=== PATIENT | male | born 1940 | race Caucasian/White ===

== ENCOUNTER 2016-08-08 14:59 | Emergency (ER) | payer MEDICARE ==
[2016-08-08 15:44] VITALS: BP 156/70
--- NOTE | 2016-08-08 16:24 | EDM.PDOC ---
ED HPI GENERAL MEDICAL PROBLEM - General Chief Complaint: General Stated Complaint: FISH HOOK Time Seen by Provider: 08/08/16 15:57 Source of Information: Reports: Patient History Limitations: Reports: No Limitations - History of Present Illness INITIAL COMMENTS - FREE TEXT/NARRATIVE: 75 yo male presents with fish hook in lateral right leg. generally healthy. incident occurred within the hour. tetanus up to date - Related Data Allergies Allergy/AdvReac Type Severity Reaction Status Date / Time No Known Allergies Allergy Verified 08/08/16 15:44 Home Meds: Home Meds Acetaminophen 500 mg PO Q4HR PRN 08/08/16 [History] Apixaban [Eliquis] 5 mg PO BID 08/08/16 [History] Fluticasone Propionate [Flonase] 1 spray TOP DAILY 08/08/16 [History] Hydrochlorothiazide/Lisinopril [Lisinopril-HCTZ 20-12.5 MG] 1 tab PO DAILY 08/08 [History] Metoprolol Succinate [Toprol XL] 25 mg PO DAILY 08/08/16 [History] Omeprazole 20 mg PO DAILY 08/08/16 [History] Past Medical History HEENT History: Reports: Allergic Rhinitis, Cataract Cardiovascular History: Reports: Afib, Hypertension Musculoskeletal History: Reports: Fracture Oncologic (Cancer) History: Reports: Basal Cell Carcinoma, Squamous Cell Carcinoma - Past Surgical History HEENT Surgical History: Reports: Cataract Surgery Cardiovascular Surgical History: Reports: Cardiac Ablation GI Surgical History: Reports: Hernia Repair/Other Musculoskeletal Surgical History: Reports: Shoulder Surgery Other Musculoskeletal Surgeries/Procedures:: right Social & Family History - Tobacco Use Smoking Status *Q: Unknown Ever Smoked ED ROS GENERAL - Review of Systems Review Of Systems: See Below Constitutional: Denies: Fever, Chills Respiratory: Denies: Shortness of Breath, Wheezing Cardiovascular: Denies: Chest Pain ED EXAM, GENERAL - Physical Exam Exam: See Below Exam Limited By: No Limitations General Appearance: Alert, WD/WN, No Apparent Distress Respiratory/Chest: No Respiratory Distress Skin Exam: Other (one hook fish lure in lateral right lower leg just below the knee) ED GENERAL MEDICAL PROCEDURES - Additional/Other Procedure(s) Other (Free Text) Procedure(s): fish hook removal - area cleaned with alcohol. 1 mL 1% lidocaine used to anesthetized the area. 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 puncture wound cleaned with soapy water and band-aid applied Course - Vital Signs Last Recorded V/S: Last Vital Signs Temp 36.8 C 08/08/16 15:40 Pulse 74 08/08/16 15:40 Resp 16 08/08/16 15:40 BP 156/70 H 08/08/16 15:40 Pulse Ox 98 08/08/16 15:40 - Orders/Labs/Meds Meds: Medications Discontinued Medications Generic Name Dose Route Start Last Admin Trade Name Jacobo PRN Reason Stop Dose Admin Lidocaine HCl 5 ml 08/08/16 16:00 Xylocaine-Mpf 1% INJECT 08/08/16 16:01 ONETIME ONE - Re-Assessments/Exams Free Text/Narrative Re-Assessment/Exam: 08/08/16 16:34 fish hook removed without difficulty Departure - Departure Time of Disposition: 16:26 Disposition: Home, Self-Care 01 Condition: good Clinical Impression: Fish hook injury of right lower leg Qualifiers: Encounter type: initial encounter Qualified Code(s): S89.91XA - Unspecified injury of right lower leg, initial encounter - Discharge Information Instructions: Puncture Wound Referrals: PCP,None [Primary Care Provider] - Forms: ED Department Discharge Additional Instructions: wash with warm soapy water observe for signs of infection - fire engine red, increase in pain, purulent drainage
== END 2016-08-08 16:40 | disposition home or self-care (01) ==
LOC: JP.ED 14:59
DX: S80.921A Unspecified superficial injury of right lower leg, initial encounter (principal); I10 Essential (primary) hypertension; I48.91 Unspecified atrial fibrillation; Z85.828 Personal history of other malignant neoplasm of skin; Z98.49 Cataract extraction status, unspecified eye; Z98.890 Other specified postprocedural states; Z79.899 Other long term (current) drug therapy
CPT/HCPCS: 99282; 99283